=== PATIENT | male | born 1985 | race Caucasian/White ===

== ENCOUNTER 2016-12-07 13:51 | Emergency (ER) | payer MEDICAID, OTHER ==
[~2016-12-07] VITALS: Ht 167.6 cm; Wt 72.5 kg
[2016-12-07 13:55] VITALS: Ht 167.6 cm; Wt 72.5 kg
[2016-12-07] MEDS ORDERED: IPRATROPIUM (NEB) 0.5 MG/2.5 ML AMP INH STA (14:40)
[2016-12-07] MEDS ORDERED: ALBUTEROL 0.5% (NEB) 2.5 MG/0.5 ML AMP INH STA (14:40)
[2016-12-07] MEDS ORDERED: IBUPROFEN 600 MG TAB PO ONE (15:00)
[2016-12-07] MEDS ORDERED: DIPHENHYDRAMINE 25 MG CAP PO ONE (15:00)
--- NOTE | 2016-12-07 15:23 | RADRPT ---
PROCEDURE: Chest x-ray CLINICAL INDICATION: Shortness of breath TECHNIQUE: Chest single view COMPARISON: None FINDINGS: The heart is normal in size. The pulmonary vessels are normal in caliber. The lungs are clear. Th e costophrenic angles are sharp. The visualized bony thorax is unremarkable. IMPRESSION: No acute cardiopulmonary disease. RPTAT: HH .Efren Welsh MD, Date Time Electronically viewed and signed by .Efren Welsh MD, on 12/07/2016 15:23 .W/
[2016-12-07] MEDS ORDERED: IBUP-1542 PO (15:27)
[2016-12-07] MEDS ORDERED: ALBU8.5H3 INH (15:27)
[2016-12-07] MEDS ORDERED: LORA10TA3 PO (15:27)
--- NOTE | 2016-12-07 19:55 | ERD ---
ER Documentation Chief Complaint Date/Time DATE: 12/07/16 TIME: 19:45 Chief Complaint COUGH X6 DAYS, MEDIAL CP, N/V X2 DAYS HPI 31-year-old man presents with cough, sore throat, nasal congestion 1 week. He states yesterday he started using azithromycin and is scheduled for 4 more days. He has been using [id number] cough syrups without relief. He smokes tobacco. Patient denies chest pain, no rash, no calf or leg swelling, no vomiting or diarrhea. ROS All systems reviewed and are negative except as per history of present illness. Medications Home Meds Active Scripts Ibuprofen* (Ibuprofen*) 600 Mg Tablet, 600 MG PO Q8 for PAIN AND/OR INFLAMMATION , #30 TAB Prov:REGGIE TOLLIVER MD 12/07/16 Loratadine* (Loratadine*) 10 Mg Tablet, 10 MG PO DAILY Y for NASAL CONGESTION, # 15 TAB Prov:REGGIE TOLLIVER MD 12/07/16 Albuterol Sulfate* (Proair HFA*) 8.5 Gm Hfa.aer.ad, 2 PUFF INH Q6H Y for COUGH, #1 INHALER Prov:REGGIE TOLLIVER MD 12/07/16 Allergies Allergies: Coded Allergies: No Known Allergy (Unverified , 10/06/13) PMhx/Soc None History of Surgery: No Anesthesia Reaction: No Hx Neurological Disorder: No Hx Respiratory Disorders: No Hx Cardiac Disorders: No Hx Psychiatric Problems: No Hx Miscellaneous Medical Probl: No Hx Alcohol Use: No Hx Substance Use: No Hx Tobacco Use: No Smoking Status: Never smoker FmHx Family History: No diabetes Physical Exam Vitals Vital Signs Date Time Temp Pulse Resp B/P Pulse Ox O2 Delivery O2 Flow Rate FiO2 12/07/16 14:49 84 26 97 21 12/07/16 13:55 99.7 108 24 18/126 87 Physical Exam GENERAL: Well-developed, well-nourished, well-hydrated, in no apparent distress , looks nontoxic in appearance HEENT: Moist mucous membranes, pink conjunctiva, no cervical spine tenderness or step-off deformities, no goiter, no jaundice or icterus, extraocular movements intact without pain. No submandibular induration, and no pharyngeal erythema NEURO: Alert and oriented 3, cranial nerves II through XII intact bilaterally, pupils equal round reactive to light, no focal deficits or facial asymmetry, sensation intact distally Strength 5/5 in upper and lower extremities bilaterally CARDIAC: Regular rate and rhythm, no murmurs rubs or gallops LUNGS: Clear bilaterally no wheezing crackles or stridor ABDOMEN: Soft nontender, no guarding, no rigidity, no rebound, no psoas sign no obturator sign. Normoactive bowel sounds SKIN: Warm and dry to touch, no abrasions, contusions, or hematomas, no lacerations, no ecchymosis, no target lesions, and without ulcers EXTREMITIES: No clubbing cyanosis or edema, calves are bilaterally symmetrical, no Homans sign, no popliteal cord sign. Distal pulses equal and bilateral PSYCH: Normal affect without agitation or irritability Results 24 hrs Current Medications Medications (Trade) Dose Ordered Sig/Petros Route PRN Reason Start Time Stop Time Status Last Admin Dose Admin Ibuprofen (Motrin) 600 mg ONCE ONCE PO 12/07/16 15:00 12/07/16 15:01 DC 12/07/16 14:44 Diphenhydramine HCl (Benadryl) 25 mg ONCE ONCE PO 12/07/16 15:00 12/07/16 15:01 DC 12/07/16 14:44 Albuterol (Proventil 0.5% (Neb)) 5 mg ONCE STAT INH 12/07/16 14:40 12/07/16 14:41 DC 12/07/16 14:51 Ipratropium [place] (Atrovent 0.02% (Neb)) 1 mg ONCE STAT INH 12/07/16 14:40 12/07/16 14:41 DC 12/07/16 14:51 Procedures/MDM I administered albuterol 5 mg via nebulizer, ipratropium 1 mg via nebulizer, and ibuprofen 600 mg p.o. with good effect. Patient also received Benadryl 25 mg p.o. for congestion. One AP view of the chest performed, read by me reveals no acute infiltrates, normal mediastinum, sharp costophrenic and cardiac borders, no air under the diaphragm. Otherwise unremarkable chest x-ray. Differential diagnoses considered, included but not limited to acute coronary syndrome, pulmonary embolism, aortic dissection, abdominal aortic aneurysm, sepsis, stroke, meningitis, encephalitis, pneumonia, appendicitis, cholecystitis , bowel obstruction, pyelonephritis, nephrolithiasis, cystitis, as well as metabolic, hematologic, and electrolyte abnormalities. As well as abscess, cellulitis, fractures, and dislocations. Patient feels much better at this time, and vital signs are normal, symptoms have improved. I did give strict instructions to return to the ED if symptoms continue or worsen, patient will otherwise follow-up with primary care physician. Patient understood instructions and agreed to plan. Departure Diagnosis: Primary Impression: URI (upper respiratory infection) URI type: acute nasopharyngitis (common cold) Qualified Code: J00 - Acute nasopharyngitis Condition: Good Patient Instructions: Bronchitis, Antiobiotic Treatment (Adult) REGGIE TOLLIVER MD Dec 07, 2016 19:55
== END 2016-12-07 15:41 | disposition home or self-care (01) ==
LOC: FTE 13:51
DX: J00 Acute nasopharyngitis [common cold] (principal)
CPT/HCPCS: 71010; 94644; Z7502; Z7610